=== PATIENT | male | born 1970 | race Caucasian/White ===

== ENCOUNTER 2022-06-04 18:41 | Inpatient (IN) ==
[2022-06-04] MEDS ORDERED: Naloxone 0.4 MG/ML INJ IVP PRN (21:21)
[2022-06-04] MEDS ORDERED: Ondansetron 4 MG/2 ML VIAL IVP PRN (21:21)
[2022-06-04] MEDS ORDERED: Melatonin 3 MG TABLET PO PRN (21:21)
[2022-06-04] MEDS ORDERED: Naloxone 0.4 MG/ML INJ ONE (21:24)
[2022-06-04] MEDS ORDERED: Lactulose Oral Soln 20 GM/30 ML UDC PO ONE (21:40)
[2022-06-04 21:51] LABS: ABG Base Excess -3 mEq/L (-2 to 3); ABG HCO3 20 mEq/L (21-27); ABG Oxygen Saturation 91 % (95-98); ABG PCO2 25 mmHg (35-45); ABG PH 7.51 pH Units (7.32-7.45); ABG PO2 53 mmHg (85-104); ABG TCO2 21 mEq/L (20-26)
[2022-06-04] MEDS ORDERED: 0.9 % Sodium Chloride 1,000 ML IVC SCH (22:00)
[2022-06-04 22:43] LABS: Hematocrit 21.7 % (37.5-50.1); Mean Corpuscular HGB Conc 32.3 g/dL (31.6-35.5); Mean Corpuscular Hemoglobin 29.8 pg (28.0-33.3); Mean Corpuscular Volume 92.3 fL (83.0-100.0); Mean Platelet Volume 9.9 fL (9.4-12.4); Platelet Count 131 K/mcL (140-400); Red Blood Count 2.35 M/mcL (4.19-5.50); White Blood Count 17.4 K/mcL (4.3-11.1)
[2022-06-04] MEDS: Pantoprazole 40 MG in 0.9 % Sodium Chloride Mini Bag 100 ML IVC SCH (23:29)
[2022-06-05] MEDS: Octreotide 400 MCG in 0.9 % Sodium Chloride 100 ML IVC SCH ×2 (00:06→16:39)
[2022-06-05] MEDS ORDERED: Lactulose Oral Soln 20 GM/30 ML UDC PO ONE (03:06)
[2022-06-05 03:41] LABS: Basophils % 0.2 %
[2022-06-05 03:43] LABS: Eosinophils # 0.1 K/mcL (0.0-0.6); Eosinophils % 0.5 %; Hematocrit 20.8 % (37.5-50.1); Hemoglobin 6.5 g/dL (12.9-16.9); Immature Granulocytes % 0.5 % (0-4); Immature Platelets 2.6 % (1.1-6.1); Lymphocytes # 1.7 K/mcL (0.6-4.6); Lymphocytes % 13.7 %; Mean Corpuscular HGB Conc 31.3 g/dL (31.6-35.5); Mean Corpuscular Hemoglobin 29.5 pg (28.0-33.3); Mean Corpuscular Volume 94.5 fL (83.0-100.0); Mean Platelet Volume 10.5 fL (9.4-12.4); Monocytes # 0.4 K/mcL (0.0-1.3); Monocytes % 3.6 %; Neutrophils # 9.9 K/mcL (1.6-8.9); Segmented Neutrophils % 81.5 %; White Blood Count 12.1 K/mcL (4.3-11.1)
[2022-06-05 03:45] LABS: INR 1.5; Prothrombin Time 16.5 Seconds (9.4-12.1)
[2022-06-05 03:47] LABS: Activated Partial Thrombo Time 26.2 Seconds (26.0-36.0)
[2022-06-05 03:59] LABS: Platelet Count 94 K/mcL (140-400)
[2022-06-05 05:00] LABS: Alanine Aminotransferase 28 Units/L (7-52); Albumin 2.2 g/dL (3.5-5.7); Albumin/Globulin Ratio 0.8 (1.1-2.2); Alkaline Phosphatase 58 Units/L (34-104); Aspartate Amino Transferase 42 Units/L (13-39); BUN/Creatinine Ratio 61 (6-26); Bilirubin,Total 1.1 mg/dL (0.3-1.0); Blood Urea Nitrogen 38 mg/dL (6-20); C-Reactive Protein 41 mg/L (Less than 10); Calcium 7.5 mg/dL (8.6-10.3); Carbon Dioxide 16 mEq/L (23-29); Chloride 119 mEq/L (98-107); Chol/HDL Ratio 3.4 (0-4.9); Cholesterol 82 mg/dL (< 200); Globulin 2.6 g/dL (2.4-3.5); Glucose 92 mg/dL (70-105); HDL Cholesterol 24 mg/dL (40-59); LDL Cholesterol,Calculated 45 mg/dL (< 100); Magnesium 1.7 mg/dL (1.6-2.6); Osmolality,Calculated 309 (280-300); Phosphorous 2.9 mg/dL (2.7-4.5); Potassium 4.1 mEq/L (3.5-5.1); Sodium 145 mEq/L (136-145); Total Protein 4.8 g/dL (6.4-8.9); Triglycerides 67 mg/dL (< 150)
[2022-06-05] MEDS ORDERED: Pantoprazole 40 MG VIAL IVP SCH (06:00)
[2022-06-05] MEDS: Pantoprazole 40 MG in 0.9 % Sodium Chloride Mini Bag 100 ML IVC SCH ×2 (06:18→22:35)
[2022-06-05] MEDS: Azithromycin 500 MG in 0.9 % Sodium Chloride 250 ML IVPB SCH (08:53)
[2022-06-05] MEDS: cefTRIAXone 1,000 MG in 0.9 % Sodium Chloride Mini Bag 100 ML IVPB SCH (08:54)
[2022-06-05] MEDS ORDERED: diazePAM 10 MG/2 ML SYRINGE IVP PRN ×2 (09:24)
[2022-06-05] MEDS ORDERED: Folic Acid 1 MG in 0.9 % Sodium Chloride 50 ML IVPB SCH (09:30)
[2022-06-05] MEDS: SODIUM CHLORIDE 0.9% IVPB SCH (10:25)
[2022-06-05] MEDS: THIAMINE IVPB SCH (10:25)
[2022-06-05] MEDS: FOLIC ACID IVPB SCH (10:25)
[2022-06-05] MEDS: 0.9 % Sodium Chloride 1,000 ML IVC SCH (10:26)
[2022-06-05 11:16] LABS: Amphetamine Screen,Urine Positive ng/mL (Cutoff=1000); Barbiturate Screen,Urine Negative ng/mL (Cutoff=200); Benzodiazepines Screen,Urine Negative ng/mL (Cutoff=200); Cannabinoid Screen,Urine Positive ng/mL (Cutoff = 50); Cocaine Screen,Urine Negative ng/mL (Cutoff= 300); Opiate Screen,Urine Negative ng/mL (Cutoff=300); Phencyclidine Screen,Urine Negative ng/mL (Cutoff=25)
[2022-06-05] MEDS ORDERED: Lidocaine HCL 4 ML Topical Solution (Laryng-O-Jet Kit Sterile Pak) TP ONE (12:39)
[2022-06-05] MEDS ORDERED: *HR* Succinylcholine 200 MG/10 ML VIAL IVP ONE (12:39)
[2022-06-05] MEDS ORDERED: Lidocaine -MPF 2% 5 ML VIAL ONE (12:39)
[2022-06-05] MEDS ORDERED: *HR* Propofol 200 MG/20 ML VIAL IVP ONE (12:39)
[2022-06-05] MEDS ORDERED: Ondansetron 4 MG/2 ML VIAL ONE (12:50)
[2022-06-05] MEDS ORDERED: Lactulose Oral Soln 20 GM/30 ML UDC ONE (20:20)
[2022-06-05] MEDS ORDERED: 0.9 % Sodium Chloride 1,000 ML ONE (20:20)
[2022-06-05] MEDS: Lactulose Oral Soln 20 GM/30 ML UDC PO SCH (20:38)
[2022-06-06] MEDS: Pantoprazole 40 MG in 0.9 % Sodium Chloride Mini Bag 100 ML IVC SCH ×2 (03:51→15:58)
[2022-06-06] MEDS: 0.9 % Sodium Chloride 1,000 ML IVC SCH (03:52)
[2022-06-06] MEDS: Lactulose Oral Soln 20 GM/30 ML UDC PO SCH ×2 (08:18→21:37)
[2022-06-06] MEDS: Azithromycin 500 MG in 0.9 % Sodium Chloride 250 ML IVPB SCH (08:18)
[2022-06-06] MEDS: cefTRIAXone 1,000 MG in 0.9 % Sodium Chloride Mini Bag 100 ML IVPB SCH (08:19)
[2022-06-06] MEDS: FOLIC ACID IVPB SCH (08:24)
[2022-06-06] MEDS: THIAMINE IVPB SCH (08:24)
[2022-06-06] MEDS: SODIUM CHLORIDE 0.9% IVPB SCH (08:24)
[2022-06-06 10:39] LABS: RBC,Peritoneal Fluid < 2000 RBC/mcL
[2022-06-06 10:55] LABS: Glucose,Peritoneal Fluid 124 mg/dL (No Ref Range); LDH,Peritoneal Fluid 41 Units/L (No Ref Range); Total Protein,Peritoneal Fluid < 2.0 g/dL
[2022-06-06] MEDS ORDERED: cefTRIAXone 1,000 MG in Water for inj. (sterile) 10 ML IVP ONE (11:32)
[2022-06-06 11:34] LABS: Appearance of Peritoneal Fl CLOUDY (Clear)
[2022-06-06 11:40] LABS: Basophils % 0.1 %; Hematocrit 21.3 % (37.5-50.1); Hemoglobin 6.7 g/dL (12.9-16.9); Immature Granulocytes % 0.4 % (0-4); Mean Corpuscular HGB Conc 31.5 g/dL (31.6-35.5); Mean Corpuscular Volume 95.5 fL (83.0-100.0); Red Blood Count 2.23 M/mcL (4.19-5.50)
[2022-06-06 11:42] LABS: Immature Platelets 3.8 % (1.1-6.1); Lymphocytes # 1.2 K/mcL (0.6-4.6); Lymphocytes % 15.5 %; Monocytes # 0.4 K/mcL (0.0-1.3); Monocytes % 5.6 %; Neutrophils # 5.8 K/mcL (1.6-8.9); Red Cell Distribution Width 19.2 % (11.5-14.5); Segmented Neutrophils % 78.4 %; White Blood Count 7.4 K/mcL (4.3-11.1)
[2022-06-06 11:59] LABS: Platelet Count 98 K/mcL (140-400)
[2022-06-06 12:02] LABS: BUN/Creatinine Ratio 41 (6-26); Blood Urea Nitrogen 27 mg/dL (6-20); Calcium 7.7 mg/dL (8.6-10.3); Carbon Dioxide 24 mEq/L (23-29); Chloride 112 mEq/L (98-107); Glucose 111 mg/dL (70-105); Osmolality,Calculated 294 (280-300); Potassium 3.7 mEq/L (3.5-5.1); Sodium 139 mEq/L (136-145)
[2022-06-06 14:04] LABS: Eosinophils,Peritoneal Fluid 0 %
[2022-06-06 14:05] LABS: Basophils,Peritoneal Fluid 0 %
[2022-06-06] MEDS: Octreotide 400 MCG in 0.9 % Sodium Chloride 100 ML IVC SCH (14:12)
[2022-06-06 15:35] LABS: Hepatitis B Surface Antigen Nonreactive (Nonreactive)
[2022-06-06 16:05] LABS: Hepatitis B Core IgM Nonreactive (Nonreactive)
[2022-06-06 16:07] LABS: Hepatitis A Antibody IgM Nonreactive (Nonreactive)
[2022-06-06 17:52] LABS: Hepatitis C Virus Antibody Reactive (Nonreactive)
[2022-06-06] MEDS ORDERED: 0.9 % Sodium Chloride 250 ML ONE (22:00)
[2022-06-07] MEDS: Pantoprazole 40 MG in 0.9 % Sodium Chloride Mini Bag 100 ML IVC SCH ×6 (02:00→20:10)
[2022-06-07 03:04] LABS: Basophils % 0.5 %; Eosinophils # 0.1 K/mcL (0.0-0.6); Eosinophils % 0.9 %; Hematocrit 23.1 % (37.5-50.1); Hemoglobin 7.4 g/dL (12.9-16.9); Immature Granulocytes % 0.4 % (0-4); Lymphocytes # 2.1 K/mcL (0.6-4.6); Lymphocytes % 24.7 %; Mean Corpuscular Hemoglobin 29.8 pg (28.0-33.3); Mean Corpuscular Volume 93.1 fL (83.0-100.0); Mean Platelet Volume 10.3 fL (9.4-12.4); Monocytes # 0.7 K/mcL (0.0-1.3); Monocytes % 7.8 %; Neutrophils # 5.6 K/mcL (1.6-8.9); Nucleated Red Blood Cells 0.5 /100 WBC (0); Platelet Count 105 K/mcL (140-400); Red Blood Count 2.48 M/mcL (4.19-5.50); Red Cell Distribution Width 18.7 % (11.5-14.5); Segmented Neutrophils % 65.7 %; White Blood Count 8.5 K/mcL (4.3-11.1)
[2022-06-07 03:25] LABS: BUN/Creatinine Ratio 34 (6-26); Blood Urea Nitrogen 23 mg/dL (6-20); Calcium 7.2 mg/dL (8.6-10.3); Carbon Dioxide 22 mEq/L (23-29); Chloride 110 mEq/L (98-107); Glucose 96 mg/dL (70-105); Osmolality,Calculated 284 (280-300); Potassium 3.6 mEq/L (3.5-5.1); Sodium 135 mEq/L (136-145)
[2022-06-07] MEDS: Octreotide 400 MCG in 0.9 % Sodium Chloride 100 ML IVC SCH ×2 (06:38→11:13)
[2022-06-07] MEDS: Azithromycin 500 MG in 0.9 % Sodium Chloride 250 ML IVPB SCH (10:33)
[2022-06-07] MEDS: Lactulose Oral Soln 20 GM/30 ML UDC PO SCH ×2 (10:41→20:10)
[2022-06-07] MEDS: SODIUM CHLORIDE 0.9% IVPB SCH (10:45)
[2022-06-07] MEDS: FOLIC ACID IVPB SCH (10:45)
[2022-06-07] MEDS: THIAMINE IVPB SCH (10:45)
[2022-06-07] MEDS: cefTRIAXone 2,000 MG in 0.9 % Sodium Chloride 20 ML IVP SCH (10:47)
[2022-06-07] MEDS: Furosemide 40 MG TABLET PO SCH (11:13)
[2022-06-08 00:45] LABS: Fluid Source for Albumin PERITONEAL FL
[2022-06-08 03:00] LABS: Basophils # 0.1 K/mcL (0.0-0.2); Basophils % 0.6 %; Eosinophils # 0.2 K/mcL (0.0-0.6); Eosinophils % 2.2 %; Hematocrit 26.7 % (37.5-50.1); Hemoglobin 8.5 g/dL (12.9-16.9); Lymphocytes # 2.3 K/mcL (0.6-4.6); Lymphocytes % 23.3 %; Mean Corpuscular HGB Conc 31.8 g/dL (31.6-35.5); Mean Corpuscular Hemoglobin 29.5 pg (28.0-33.3); Mean Corpuscular Volume 92.7 fL (83.0-100.0); Mean Platelet Volume 10.3 fL (9.4-12.4); Monocytes % 10.1 %; Neutrophils # 6.3 K/mcL (1.6-8.9); Nucleated Red Blood Cells 0.2 /100 WBC (0); Platelet Count 111 K/mcL (140-400); Red Blood Count 2.88 M/mcL (4.19-5.50); Segmented Neutrophils % 62.8 %
[2022-06-08 03:02] LABS: INR 1.4; Prothrombin Time 15.3 Seconds (9.4-12.1)
[2022-06-08 03:26] LABS: % Iron Saturation 10 % (20-55); Alanine Aminotransferase 23 Units/L (7-52); Albumin 2.5 g/dL (3.5-5.7); Albumin/Globulin Ratio 0.9 (1.1-2.2); Alkaline Phosphatase 111 Units/L (34-104); Aspartate Amino Transferase 26 Units/L (13-39); BUN/Creatinine Ratio 28 (6-26); Bilirubin,Total 0.7 mg/dL (0.3-1.0); Blood Urea Nitrogen 19 mg/dL (6-20); Calcium 7.6 mg/dL (8.6-10.3); Carbon Dioxide 20 mEq/L (23-29); Chloride 109 mEq/L (98-107); Globulin 2.7 g/dL (2.4-3.5); Glucose 93 mg/dL (70-105); Iron 28 mcg/dL (65-175); Osmolality,Calculated 282 (280-300); Potassium 3.5 mEq/L (3.5-5.1); Sodium 135 mEq/L (136-145); Total Protein 5.2 g/dL (6.4-8.9); Transferrin 200 mg/dL (203-362)
[2022-06-08 03:34] LABS: Ferritin 57 ng/mL (20-250)
[2022-06-08 03:40] LABS: Folate 13.2 ng/mL (3.0-16.0)
[2022-06-08] MEDS: Pantoprazole 40 MG in 0.9 % Sodium Chloride Mini Bag 100 ML IVC SCH (05:26)
[2022-06-08] MEDS: Lactulose Oral Soln 20 GM/30 ML UDC PO SCH ×2 (09:40→20:26)
[2022-06-08] MEDS: cefTRIAXone 2,000 MG in 0.9 % Sodium Chloride 20 ML IVP SCH (09:40)
[2022-06-08] MEDS: Thiamine (B-1) 100 MG TABLET PO SCH (09:41)
[2022-06-08] MEDS: Folic Acid 1 MG TABLET PO SCH (09:41)
[2022-06-08] MEDS: Furosemide 40 MG TABLET PO SCH (09:42)
[2022-06-08] MEDS: Azithromycin 250 MG TABLET PO SCH (09:44)
[2022-06-09] MEDS: Octreotide 400 MCG in 0.9 % Sodium Chloride 100 ML IVC SCH ×3 (06:29→06:31)
[2022-06-09] MEDS: Pantoprazole 40 MG in 0.9 % Sodium Chloride Mini Bag 100 ML IVC SCH (06:31)
[2022-06-09] MEDS: Thiamine (B-1) 100 MG TABLET PO SCH (08:46)
[2022-06-09] MEDS: Azithromycin 250 MG TABLET PO SCH (08:46)
[2022-06-09] MEDS: Furosemide 40 MG TABLET PO SCH ×2 (08:46→18:22)
[2022-06-09] MEDS: Folic Acid 1 MG TABLET PO SCH (08:47)
[2022-06-09] MEDS: Lactulose Oral Soln 20 GM/30 ML UDC PO SCH ×2 (08:47→20:27)
[2022-06-09] MEDS: cefTRIAXone 2,000 MG in 0.9 % Sodium Chloride 20 ML IVP SCH (08:47)
[2022-06-09] MEDS: Albumin 25% 25gram/100mL 25 GM/100 ML IV.SOLN IVPB SCH (17:13)
[2022-06-10] MEDS: Albumin 25% 25gram/100mL 25 GM/100 ML IV.SOLN IVPB SCH ×2 (00:27→09:54)
[2022-06-10 02:46] LABS: Albumin 2.8 g/dL (3.5-5.7); Albumin/Globulin Ratio 1.1 (1.1-2.2); Bilirubin,Direct 0.2 mg/dL (0.0-0.2); Bilirubin,Indirect 0.6 mg/dL (0.0-1.0); Bilirubin,Total 0.8 mg/dL (0.3-1.0); Globulin 2.5 g/dL (2.4-3.5); Total Protein 5.3 g/dL (6.4-8.9)
[2022-06-10] MEDS: Azithromycin 250 MG TABLET PO SCH (09:48)
[2022-06-10] MEDS: Thiamine (B-1) 100 MG TABLET PO SCH (09:48)
[2022-06-10] MEDS: Folic Acid 1 MG TABLET PO SCH (09:49)
[2022-06-10] MEDS: Furosemide 40 MG TABLET PO SCH ×2 (09:54→16:14)
[2022-06-10] MEDS: Lactulose Oral Soln 20 GM/30 ML UDC PO SCH ×2 (09:57→20:29)
[2022-06-10] MEDS: cefTRIAXone 2,000 MG in 0.9 % Sodium Chloride 20 ML IVP SCH (09:58)
[2022-06-10] MEDS ORDERED: Ibuprofen 400 MG TABLET PO ONE (16:37)
[2022-06-10 17:10] LABS: BUN/Creatinine Ratio 25 (6-26); Blood Urea Nitrogen 17 mg/dL (6-20); Calcium 8.1 mg/dL (8.6-10.3); Carbon Dioxide 26 mEq/L (23-29); Chloride 107 mEq/L (98-107); Glucose 81 mg/dL (70-105); Osmolality,Calculated 285 (280-300); Potassium 3.8 mEq/L (3.5-5.1); Sodium 137 mEq/L (136-145)
[2022-06-11 04:38] LABS: Alanine Aminotransferase 19 Units/L (7-52); Albumin 2.6 g/dL (3.5-5.7); Albumin/Globulin Ratio 1.1 (1.1-2.2); Alkaline Phosphatase 106 Units/L (34-104); Aspartate Amino Transferase 25 Units/L (13-39); BUN/Creatinine Ratio 28 (6-26); Bilirubin,Total 0.6 mg/dL (0.3-1.0); Blood Urea Nitrogen 20 mg/dL (6-20); Calcium 8.1 mg/dL (8.6-10.3); Carbon Dioxide 26 mEq/L (23-29); Chloride 107 mEq/L (98-107); Globulin 2.3 g/dL (2.4-3.5); Glucose 109 mg/dL (70-105); Osmolality,Calculated 287 (280-300); Potassium 3.7 mEq/L (3.5-5.1); Sodium 137 mEq/L (136-145); Total Protein 4.9 g/dL (6.4-8.9)
[2022-06-11] MEDS ORDERED: cefTRIAXone 2,000 MG in 0.9 % Sodium Chloride 20 ML IVP ONE (07:32)
[2022-06-11] MEDS: Furosemide 40 MG TABLET PO SCH ×2 (08:09→15:19)
[2022-06-11] MEDS: Azithromycin 250 MG TABLET PO SCH (08:10)
[2022-06-11] MEDS: Thiamine (B-1) 100 MG TABLET PO SCH (08:10)
[2022-06-11] MEDS: Lactulose Oral Soln 20 GM/30 ML UDC PO SCH ×2 (08:12→20:26)
[2022-06-11] MEDS: Folic Acid 1 MG TABLET PO SCH (08:12)
[2022-06-11 09:34] LABS: HCV Quant Interpretation DETECTED (Not Detected); HCV Quant Log 5.87 log IU/mL
[2022-06-11] MEDS: Albumin 25% 25gram/100mL 25 GM/100 ML IV.SOLN IVPB SCH ×2 (16:27→23:38)
[2022-06-12] MEDS: Lactulose Oral Soln 20 GM/30 ML UDC PO SCH ×2 (09:55→21:52)
[2022-06-12] MEDS: Folic Acid 1 MG TABLET PO SCH (09:56)
[2022-06-12] MEDS: Thiamine (B-1) 100 MG TABLET PO SCH (09:56)
[2022-06-12] MEDS: Furosemide 40 MG TABLET PO SCH ×2 (10:01→17:38)
[2022-06-12] MEDS: Albumin 25% 25gram/100mL 25 GM/100 ML IV.SOLN IVPB SCH (10:01)
[2022-06-13] MEDS: Furosemide 40 MG TABLET PO SCH ×2 (07:31→16:14)
[2022-06-13] MEDS: Thiamine (B-1) 100 MG TABLET PO SCH (07:32)
[2022-06-13] MEDS: Lactulose Oral Soln 20 GM/30 ML UDC PO SCH ×2 (07:32→21:29)
[2022-06-13] MEDS: Folic Acid 1 MG TABLET PO SCH (07:32)
[2022-06-13 11:55] LABS: Alanine Aminotransferase 25 Units/L (7-52); Albumin 3.3 g/dL (3.5-5.7); Albumin/Globulin Ratio 1.2 (1.1-2.2); Alkaline Phosphatase 116 Units/L (34-104); Aspartate Amino Transferase 36 Units/L (13-39); BUN/Creatinine Ratio 17 (6-26); Bilirubin,Total 0.7 mg/dL (0.3-1.0); Blood Urea Nitrogen 12 mg/dL (6-20); Calcium 8.9 mg/dL (8.6-10.3); Carbon Dioxide 30 mEq/L (23-29); Chloride 104 mEq/L (98-107); Globulin 2.8 g/dL (2.4-3.5); Glucose 69 mg/dL (70-105); Osmolality,Calculated 282 (280-300); Potassium 3.9 mEq/L (3.5-5.1); Sodium 137 mEq/L (136-145); Total Protein 6.1 g/dL (6.4-8.9)
[2022-06-14] MEDS: Folic Acid 1 MG TABLET PO SCH (09:03)
[2022-06-14] MEDS: Thiamine (B-1) 100 MG TABLET PO SCH (09:03)
[2022-06-14] MEDS: Furosemide 40 MG TABLET PO SCH ×2 (09:03→17:11)
[2022-06-14] MEDS: Lactulose Oral Soln 20 GM/30 ML UDC PO SCH ×2 (09:03→21:05)
[2022-06-14 15:04] LABS: HCV Genotype by Sequencing 1A OR 1B
[2022-06-15] MEDS: Furosemide 40 MG TABLET PO SCH ×2 (08:38→17:19)
[2022-06-15] MEDS: Thiamine (B-1) 100 MG TABLET PO SCH (08:38)
[2022-06-15] MEDS: Folic Acid 1 MG TABLET PO SCH (08:39)
[2022-06-15] MEDS: Lactulose Oral Soln 20 GM/30 ML UDC PO SCH ×2 (08:39→20:32)
[2022-06-16] MEDS: Folic Acid 1 MG TABLET PO SCH (08:04)
[2022-06-16] MEDS: Furosemide 40 MG TABLET PO SCH ×2 (08:04→16:22)
[2022-06-16] MEDS: Lactulose Oral Soln 20 GM/30 ML UDC PO SCH ×2 (08:04→19:49)
[2022-06-16] MEDS: Thiamine (B-1) 100 MG TABLET PO SCH (08:04)
[2022-06-17] MEDS: Lactulose Oral Soln 20 GM/30 ML UDC PO SCH ×2 (07:29→20:11)
[2022-06-17] MEDS: Folic Acid 1 MG TABLET PO SCH (07:30)
[2022-06-17] MEDS: Furosemide 40 MG TABLET PO SCH ×2 (07:30→16:41)
[2022-06-17] MEDS: Thiamine (B-1) 100 MG TABLET PO SCH (07:30)
[2022-06-18] MEDS: Thiamine (B-1) 100 MG TABLET PO SCH (09:02)
[2022-06-18] MEDS: Furosemide 40 MG TABLET PO SCH ×2 (09:02→16:18)
[2022-06-18] MEDS: Folic Acid 1 MG TABLET PO SCH (09:02)
[2022-06-18] MEDS: Lactulose Oral Soln 20 GM/30 ML UDC PO SCH ×2 (09:07→21:09)
[2022-06-18 09:19] LABS: Hematocrit 26.7 % (37.5-50.1); Mean Corpuscular Volume 93.4 fL (83.0-100.0); Red Blood Count 2.86 M/mcL (4.19-5.50); Red Cell Distribution Width 17.2 % (11.5-14.5)
[2022-06-18 09:21] LABS: Basophils % 1.1 %; Eosinophils # 0.1 K/mcL (0.0-0.6); Eosinophils % 2.4 %; Hemoglobin 8.3 g/dL (12.9-16.9); Immature Granulocytes % 0.5 % (0-4); Immature Platelets 4.6 % (1.1-6.1); Lymphocytes # 0.7 K/mcL (0.6-4.6); Lymphocytes % 18.3 %; Mean Corpuscular HGB Conc 31.1 g/dL (31.6-35.5); Mean Platelet Volume 11.3 fL (9.4-12.4); Monocytes # 0.3 K/mcL (0.0-1.3); Segmented Neutrophils % 69.7 %; White Blood Count 3.8 K/mcL (4.3-11.1)
[2022-06-18 09:28] LABS: INR 1.3; Prothrombin Time 14.6 Seconds (9.4-12.1)
[2022-06-18 09:38] LABS: Alanine Aminotransferase 37 Units/L (7-52); Albumin 3.4 g/dL (3.5-5.7); Albumin/Globulin Ratio 1.1 (1.1-2.2); Alkaline Phosphatase 155 Units/L (34-104); Aspartate Amino Transferase 49 Units/L (13-39); BUN/Creatinine Ratio 29 (6-26); Bilirubin,Direct 0.1 mg/dL (0.0-0.2); Bilirubin,Indirect 0.5 mg/dL (0.0-1.0); Bilirubin,Total 0.6 mg/dL (0.3-1.0); Blood Urea Nitrogen 22 mg/dL (6-20); Calcium 8.7 mg/dL (8.6-10.3); Carbon Dioxide 26 mEq/L (23-29); Chloride 104 mEq/L (98-107); Globulin 3.1 g/dL (2.4-3.5); Glucose 129 mg/dL (70-105); Magnesium 1.7 mg/dL (1.6-2.6); Osmolality,Calculated 283 (280-300); Potassium 3.9 mEq/L (3.5-5.1); Sodium 134 mEq/L (136-145); Total Protein 6.5 g/dL (6.4-8.9)
[2022-06-18 10:17] LABS: Neutrophils # 2.7 K/mcL (1.6-8.9); Platelet Count 76 K/mcL (140-400)
[2022-06-18] MEDS ORDERED: Iron Sucrose Complex 250 MG in 0.9 % Sodium Chloride 250 ML IVPB SCH (11:00)
[2022-06-18] MEDS: Iron Sucrose Complex 250 MG in 0.9 % Sodium Chloride 250 ML IVPB SCH (15:07)
[2022-06-19 05:11] LABS: Immature Granulocytes % 0.3 % (0-4); Mean Corpuscular Volume 91.8 fL (83.0-100.0)
[2022-06-19 05:13] LABS: Basophils % 0.8 %; Eosinophils # 0.1 K/mcL (0.0-0.6); Eosinophils % 2.2 %; Hematocrit 25.7 % (37.5-50.1); Hemoglobin 8.1 g/dL (12.9-16.9); Immature Platelets 5.2 % (1.1-6.1); Lymphocytes % 26.5 %; Mean Corpuscular HGB Conc 31.5 g/dL (31.6-35.5); Mean Corpuscular Hemoglobin 28.9 pg (28.0-33.3); Mean Platelet Volume 11.3 fL (9.4-12.4); Monocytes # 0.3 K/mcL (0.0-1.3); Monocytes % 8.5 %; Neutrophils # 2.3 K/mcL (1.6-8.9); Red Cell Distribution Width 16.7 % (11.5-14.5); Segmented Neutrophils % 61.7 %; White Blood Count 3.7 K/mcL (4.3-11.1)
[2022-06-19 05:14] LABS: Platelet Count 76 K/mcL (140-400)
[2022-06-19 05:26] LABS: BUN/Creatinine Ratio 25 (6-26); Blood Urea Nitrogen 21 mg/dL (6-20); Calcium 8.7 mg/dL (8.6-10.3); Carbon Dioxide 25 mEq/L (23-29); Chloride 104 mEq/L (98-107); Glucose 103 mg/dL (70-105); Osmolality,Calculated 283 (280-300); Potassium 3.9 mEq/L (3.5-5.1); Sodium 135 mEq/L (136-145)
[2022-06-19] MEDS: Thiamine (B-1) 100 MG TABLET PO SCH (08:34)
[2022-06-19] MEDS: Lactulose Oral Soln 20 GM/30 ML UDC PO SCH ×2 (08:34→21:22)
[2022-06-19] MEDS: Furosemide 40 MG TABLET PO SCH ×2 (08:35→17:02)
[2022-06-19] MEDS: Folic Acid 1 MG TABLET PO SCH (08:35)
[2022-06-19] MEDS: Iron Sucrose Complex 250 MG in 0.9 % Sodium Chloride 250 ML IVPB SCH (10:00)
[2022-06-20 05:30] VITALS: TEMP 97.7
[2022-06-20] MEDS: Lactulose Oral Soln 20 GM/30 ML UDC PO SCH (09:17)
[2022-06-20] MEDS: Folic Acid 1 MG TABLET PO SCH (09:18)
[2022-06-20] MEDS: Furosemide 40 MG TABLET PO SCH (09:18)
[2022-06-20] MEDS: Thiamine (B-1) 100 MG TABLET PO SCH (09:18)
[2022-06-20 09:28] VITALS: BP 106/60; PULSE 75; O2SAT 98
[2022-06-20] MEDS: Iron Sucrose Complex 250 MG in 0.9 % Sodium Chloride 250 ML IVPB SCH (09:35)
== END 2022-06-20 11:25 | DRG 720 ==
LOC: 2NENU → SUATTDRO 20:54 → 2NENU 20:58 → SUATTDRO 06-06 13:34
PROVIDERS: ADMIT Pharmacist; ATTEND Internal Medicine